=== PATIENT | female | born 1945 | race Caucasian/White ===

== ENCOUNTER 2017-10-17 10:15 | Emergency (ER) | payer MEDICARE, OTHER ==
[~2017-10-17] VITALS: Ht 154.9 cm; Wt 69.4 kg
[~2017-10-17 10:15] MED LIST: CIPROFLOXACIN500 MG PO; COQ-10100 MG PO; COZAAR25 MG PO; FISH OIL 1,2001 EAC1 PO; FLAGYL250 MG PO; IRBESARTAN300 MG PO; METOPROLOL SUCC25 MG PO; NIACIN500 M1 PO; PERCOCET 7.5-31 EACH PO; PRAVACHOL40 MG PO; ZINC50 M2 PO
--- NOTE | 2017-10-18 15:28 | EKG ---
[facility] [address] [facility] [place] [address] Signed Normal sinus rhythm Nonspecific ST abnormality Abnormal ECG No previous ECGs available Confirmed by ANDERS LUND MD ([id number]) on 10/18/2017 3:28:26 PM Electronically Signed By: ANDERS LUND MD 10/18/17 1528 PATIENT NAME: MELISSA ROWE Electrocardiogram DATE OF : 41 PHYSICIAN: ANDERS LUND MD REPORT #: [id number] REPORT IS CONFIDENTIAL AND NOT TO BE RELEASED WITHOUT AUTHORIZATION
== END 2017-10-17 12:25 | disposition home or self-care (01) ==
LOC: ED 10:15
DX: R68.84 Jaw pain (principal); R07.9 Chest pain, unspecified; I10 Essential (primary) hypertension; E78.5 Hyperlipidemia, unspecified; Z79.899 Other long term (current) drug therapy; Z79.2 Long term (current) use of antibiotics
CPT/HCPCS: 71045; 80053; 84484; 85025; 93005; 93010; 96374; 99284; J2060

== ENCOUNTER 2018-10-17 17:31 | Emergency (ER) | payer MEDICARE, OTHER ==
[~2018-10-17] VITALS: Ht 154.9 cm; Wt 73.5 kg
[2018-10-17] MEDS ORDERED: COZAAR50 MG PO (17:54)
[2018-10-17] MEDS ORDERED: CIPRO500 MG PO (19:40)
[2018-10-17] MEDS ORDERED: FLAGYL500 MG PO (19:40)
[2018-10-17] MEDS ORDERED: NORCO 5-325 TA1 EACH PO (19:40)
== END 2018-10-17 19:55 | disposition home or self-care (01) ==
LOC: ED 17:31
DX: R10.32 Left lower quadrant pain (principal); I10 Essential (primary) hypertension; E78.5 Hyperlipidemia, unspecified; Z88.8 Allergy status to other drugs, medicaments and biological substances; Z79.899 Other long term (current) drug therapy
CPT/HCPCS: 74176; 80053; 81001; 83690; 85025; 87088; 96365; 99284-25; J0696

== ENCOUNTER 2018-10-19 08:13 | Emergency (ER) | payer MEDICARE, OTHER ==
[~2018-10-19] VITALS: Ht 154.9 cm; Wt 73.5 kg
[~2018-10-19 08:13] MED LIST changes: +CIPRO500 MG PO; +COZAAR50 MG PO; +FLAGYL500 MG PO; +NORCO 5-325 TA1 EACH PO
--- OUTSIDE RECORDS SUMMARY | 2018-10-19 08:16 | XMS ---
PreManage Notification: MELISSA ROWE Security [employer] Hand Events No recent Security Events currently on file CRITERIA MET - [facility] - 2 Visits in 30 Days CARE PROVIDERS WATSON SANTA Primary Care 01/08/2015-Current PHONE: Unknown Other Current PHONE: Unknown Rosaura has no Care Guidelines for this patient. Vickie VISIT COUNT (12 MO.) [address] [place] [address] TOTAL 2 NOTE: Visits indicate total known visits. ED/UCC VISIT TRACKING (12 MO.) 10/19/2018 08:14 [facility] [place] TYPE: Emergency COMPLAINT: - WEAKNESS 10/17/2018 17:32 [facility] [place] TYPE: Emergency COMPLAINT: - ABD PAIN INPATIENT VISIT TRACKING (12 MO.) No inpatient visits to display in this time frame [email or web address]
--- NOTE | 2018-10-19 20:04 | EKG ---
[facility] [address] [facility] [place], [place] [address] Signed Sinus bradycardia Otherwise normal ECG When compared with ECG of 17-OCT-2017 10:37, Questionable change in QRS axis ST no longer depressed in Lateral leads Confirmed by ANDERS LUND MD ([id number]) on 10/19/2018 8:04:14 PM Electronically Signed By: ANDERS LUND MD 10/19/18 2004 PATIENT NAME: JAEMELISSAAyo CHOIE Electrocardiogram DATE OF : 41 PHYSICIAN: ANDERS LUND MD REPORT #: [id number] REPORT IS CONFIDENTIAL AND NOT TO BE RELEASED WITHOUT AUTHORIZATION
== END 2018-10-19 10:15 | disposition home or self-care (01) ==
LOC: ED 08:13
DX: R07.9 Chest pain, unspecified (principal); I10 Essential (primary) hypertension; E78.5 Hyperlipidemia, unspecified; Z90.49 Acquired absence of other specified parts of digestive tract; Z91.048 Other nonmedicinal substance allergy status; Z79.899 Other long term (current) drug therapy
CPT/HCPCS: 71045; 80053; 81001; 84484; 85025; 93005; 93010; 99285-25

== ENCOUNTER 2019-01-08 07:35 | Day surgery (SDC) | payer MEDICARE, OTHER ==
[~2019-01-08] VITALS: Ht 154.9 cm; Wt 72.6 kg
[2019-01-08] MEDS ORDERED: ADULT LOW DOSE81 MG PO (08:04)
--- NOTE | 2019-01-08 10:08 | NUR ---
01/08/19 Katelyn8 Shantel Reddy 0959 PT TO PACU SLEEPY BUT AROUSABLE DENIES PAIN OR NAUSEA O2 PLACED VIA NASAL CANNULA AT 2L.
--- NOTE | 2019-01-08 11:30 | NUR ---
PT COMES BACK TO FROM PACU. SHE HAS BEEN SLEEPY, C/O DIZZINESS AND LIGHTHEADEDNESS WHEN THEY TRIED TO DEPUTY INSURANCE COMMISSIONER PACU. SHE STATES THAT WHEN SHE MOVES HER HEAD IT MAKES HER DIZZY. SHE IS GIVEN WATER AND JELLO TO HELP. WILL CONTINUE TO MONITOR.
--- NOTE | 2019-01-08 12:26 | NUR ---
PT REPORTS THAT AFTER EATING SHE IS FEELING BETTER, LESS DIZZY. PT WOULD LIKE TO TRY GETTING UP.
--- NOTE | 2019-01-08 14:26 | NUR ---
ADA 1320: PT REQUESTS SOMETHING MORE SUBSTANIAL TO EAT. A GRILLED CHEESE SANDWICH AND TOMATO SOUP IS ORDERED. SHE REPORTS FEELING A LITTLE BETTER.
--- NOTE | 2019-01-08 14:27 | NUR ---
LE 1400: PT IS CHECKED ON AND SHE LOOKS MORE LIVELY THAN HER ARRIVAL FROM PACU. SHE HAS FINISHED HER SANDWICH AND SOUP AND REPORTS THAT SHE FEELS MUCH BETTER. SHE WOULD LIKE TO GO HOME AT THIS TIME. DC INSTRUCTIONS ARE REVIEWED WITH PT AND HER AGAIN VERBALLY, THEY BOTH VERBALIZE UNDERSTANDING. THIS RN HELPS THE PT GET DRESSED. SHE IS TAKEN TO VEHICLE VIA WC. SHE TRANSFERS HERSELF FROM WC TO VEHICLE.
--- NOTE | 2019-01-09 06:29 | OR ---
[facility] [address] [place], [place] [address] Signed DATE OF OPERATION: 01/08/2019 SURGEON: Radha Martinez MD PREOPERATIVE DIAGNOSES: 1. Gastroesophageal reflux disease. 2. Diverticulitis (September 2018). 3. Thickened proximal descending colon associated with diverticulitis. 4. A brother with colonic polyps in his late 50s. POSTOPERATIVE DIAGNOSES: 1. Wnwf-fm-qnykojzd gastritis. 2. Shallow linear antral gastric ulcer. 3. Small hiatal hernia. 4. Distal esophagitis. 5. Moderate pandiverticulosis with narrowing and angulation in the distal descending and proximal sigmoid colon. 6. Small internal and external hemorrhoids. 7. There is a 4 mm polyp in mid right colon. PROCEDURE: 1. EGD with CLOtest and biopsies of the duodenal, pyloric bulb, antrum and GE junction. 2. Colonoscopy with hot biopsy. ESTIMATED BLOOD LOSS: None. INDICATIONS: Melissa is a 73-year-old female, asked to see me for both upper and lower endoscopy. She has had longstanding acid reflux and finally took a medicine recently and she said overall she felt better, but then she stopped taking it. In addition, she went through an episode of diverticulitis in September of this year. CT scan, of course, showed some thickening in the distal descending colon and proximal sigmoid colon. As always, an actual neoplasm cannot be ruled out. In addition, Melissa's brother had colonic polyps in his late 50s. Unfortunately, Melissa has never had a colonoscopy. However, both her daughter and her have had colonoscopies. Melissa seemed to be a little anxious about the whole process. In the office, I gave her pamphlets on both upper and lower endoscopy. We looked at those in detail. She understands the nature of the 2 tests along with the risks including, but not limited to gas bloating, crampy abdominal pain, bleeding, perforation, requiring surgery, and missed diagnosis. She also understands Electronically Signed By: RADHA MARTINEZ MD 01/09/19 0629 PATIENT NAME: MELISSA ROWE OPERATIVE REPORT DATE OF : 41 REPORT #: [id number] PHYSICIAN: RADHA MARTINEZ MD PCP: CECE VILLEGAS MD REPORT IS CONFIDENTIAL AND NOT TO BE RELEASED WITHOUT AUTHORIZATION [facility] [address] [place] [address] Signed the need for IV conscious sedation. She had expressed understanding and wished to proceed. PROCEDURE NOTE: Melissa was taken into our endoscopy suite and placed in the supine semi-recumbent position. Posterior oropharynx was anesthetized with lidocaine spray. A bite block was utilized for the case. She was given a total of 8 mg of Versed and 175 mcg of fentanyl to cover both cases. The adult gastroscope was introduced and advanced all the way out into the third portion of the duodenum under direct visualization of camera without difficulty. The duodenum and pyloric channel were not overly concerning. We did take biopsies from the duodenal and pyloric bulb for pathologic review. Back in the antrum, she clearly had a shallow linear ulcer in the antrum. We went ahead and took a biopsy in this area along with the biopsy from the antrum for CLOtest. She had just a little bit of erythema in her stomach, but not particularly troublesome. The scope had been retroflexed and she clearly has a small hiatal hernia. There were no gastric or esophageal varices. The scope was withdrawn up through the area of the GE junction, which was compliant without stricture. She has mild disruption to the Z-line, but also has some patchy distal esophagitis. There was no Saeed's mucosa. We took biopsies at the GE junction for pathologic review. The middle and upper esophagus were unremarkable. After this, the gas was suctioned out and the gastroscope removed. Melissa tolerated her upper endoscopy quite well. Melissa was then rotated into the left lateral decubitus position. She was maintained on IV sedation with the Versed and fentanyl. A digital rectal exam was performed and she does have some small external hemorrhoids. Her sphincter tone was good. No masses. The adult colonoscope was then introduced and advanced all the way around into the cecum under direct visualization camera without difficulty. We could not quite get directly into the base of the cecum and there was some liquid bilious stool that we could not quite suction or irrigate out even with palpation on additional sedation. Otherwise, her prep was quite good. The scope was slowly withdrawn and she had just a small polyp in the mid right colon, which we easily removed with the help of hot biopsy forceps. She also has moderate pandiverticulosis. Again, it is somewhat narrow in the distal descending colon and proximal sigmoid colon. It is also angulated as she come to this area and down into the proximal to mid sigmoid colon. Her diverticula are somewhere moderate in size, moderate in moderate and scattered about. The rectum itself was unremarkable. Upon retroflexion of scope, she has some standard internal hemorrhoid tissue. One was a bit irritated, it might bleed from time to time. After this, the gas was suctioned out, colonoscope removed. Melissa tolerated the procedure quite well. RECOMMENDATIONS: I will see Melissa back in my office in 7 to 14 days to review her results. She probably needs to take an H2 brigid or proton pump inhibitor for stomach at least for 8-12 weeks Electronically Signed By: RADHA MARTINEZ MD 01/09/19 0629 PATIENT NAME: MELISSA ROWE OPERATIVE REPORT DATE OF : 41 REPORT #: [id number] PHYSICIAN: RADHA MARTINEZ MD PCP: CECE VILLEGAS MD REPORT IS CONFIDENTIAL AND NOT TO BE RELEASED WITHOUT AUTHORIZATION [facility] [address] [place], [place] [address], [place] [address] Signed to allow the shallow ulcer to heal. And given her brother's history, she probably should have a colonoscopy every 5 years. MD TALI White/GUERA /[id number] cc: MD Cece White MD Copies: RADHA MARTINEZ MD ~ Electronically Signed By: RADHA MARTINEZ MD 01/09/19 0629 PATIENT NAME: MELISSA ROWE OPERATIVE REPORT DATE OF : 41 REPORT #: [id number] PHYSICIAN: RADHA MARTINEZ MD PCP: CECE VILLEGAS MD REPORT IS CONFIDENTIAL AND NOT TO BE RELEASED WITHOUT AUTHORIZATION
== END 2019-01-08 14:15 | disposition home or self-care (01) ==
LOC: DS 07:35 → OPS 07:35
PROVIDERS: Colon & Rectal Surgery
PROC: 0DB78ZX Excision of Stomach, Pylorus, Via Natural or Artificial Opening Endoscopic, Diagnostic (ICD-10-PCS; 2019-01-08)
PROC: 0DB48ZX Excision of Esophagogastric Junction, Via Natural or Artificial Opening Endoscopic, Diagnostic (ICD-10-PCS; 2019-01-08)
PROC: 0DBF8ZX Excision of Right Large Intestine, Via Natural or Artificial Opening Endoscopic, Diagnostic (ICD-10-PCS; principal; 2019-01-08 09:00)
PROC: 0DB98ZX Excision of Duodenum, Via Natural or Artificial Opening Endoscopic, Diagnostic (ICD-10-PCS; 2019-01-08 09:00)
DX: Z12.11 Encounter for screening for malignant neoplasm of colon (principal); K63.5 Polyp of colon; K52.9 Noninfective gastroenteritis and colitis, unspecified; K64.8 Other hemorrhoids; K64.4 Residual hemorrhoidal skin tags; K57.30 Diverticulosis of large intestine without perforation or abscess without bleeding; K29.50 Unspecified chronic gastritis without bleeding; K25.9 Gastric ulcer, unspecified as acute or chronic, without hemorrhage or perforation; K29.80 Duodenitis without bleeding; K20.9 Esophagitis, unspecified; K44.9 Diaphragmatic hernia without obstruction or gangrene; I10 Essential (primary) hypertension; K21.9 Gastro-esophageal reflux disease without esophagitis; E78.00 Pure hypercholesterolemia, unspecified; Z83.71 Family history of colonic polyps; Z91.041 Radiographic dye allergy status; Z79.899 Other long term (current) drug therapy; Z79.82 Long term (current) use of aspirin
CPT/HCPCS: 86677; 99153; G0500; J2250; J3010; J7120

== ENCOUNTER 2019-01-31 17:54 | Observation (INO) | payer MEDICARE, OTHER ==
[~2019-01-31] VITALS: Ht 154.9 cm; Wt 75.8 kg
[~2019-01-31 17:54] MED LIST changes: +ADULT LOW DOSE81 MG PO; +COZAAR100 MG PO; -COZAAR50 MG PO
--- OUTSIDE RECORDS SUMMARY | 2019-01-31 17:56 | XMS ---
PreManage Notification: MELISSA ROWE Security Soybean Grower Events No recent Security Events currently on file CRITERIA MET - [facility] - Has Care Guidelines CARE PROVIDERS Maximilian Clement Internal [facility]: Pulmonary Disease 10/19/2018-Current PHONE: Unknown WATSON SANTA Primary Care 01/08/2015-Current PHONE: Unknown Other Current PHONE: Unknown Rosaura has no Care Guidelines for this patient. Care History Medical/Surgical 10/19/2018 [facility] - Patient is currently established with [facility]. If patient is seen in the ED during business hours. Please contact CHWs at [facility]. Care Recommendation: This patient has had 5 or more Emergency Department visits in the last 12 months.\T\nbsp; Patient requires education on the scope and purpose of the ED as an acute care provider not a Primary Care Provider and should not be utilized for chronic conditions.\T\nbsp; These are guidelines and the provider should exercise clinical judgment when providing care. E.D. VISIT COUNT (12 MO.) 3 SIMA [facility]oe TOTAL 3 NOTE: Visits indicate total known visits. ED/UCC VISIT TRACKING (12 MO.) 01/31/2019 17:54 [facility] [place] TYPE: Emergency COMPLAINT: - DIZZINESS 10/19/2018 08:14 [facility] [place] TYPE: Emergency COMPLAINT: - WEAKNESS DIAGNOSES: - Acquired absence of other specified parts of digestive tract - Other prison (current) drug therapy - Other nonmedicinal substance allergy status - Essential (primary) hypertension - Hyperlipidemia, unspecified - Weakness - Chest pain, unspecified 10/17/2018 17:32 [facility] [place] TYPE: Emergency COMPLAINT: - ABD PAIN DIAGNOSES: - Hyperlipidemia, unspecified - Essential (primary) hypertension - Other prison (current) drug therapy - Left lower quadrant pain - Allergy status to other drugs, medicaments and biological substances status INPATIENT VISIT TRACKING (12 MO.) No inpatient visits to display in this time frame [email or web address]
--- NOTE | 2019-01-31 23:24 | NUR ---
VITALS DONE AND CHARTED. HELPED PT FROM THE BATHROOM TO HER BED. SCD'S PUT ON. CALL LIGHT IN REACH. FRESH ICE WATER GIVEN. BEDSIDE TABLE BY HER BED. PT NEEDS NOTHING MORE AT THIS TIME.
--- NOTE | 2019-01-31 23:29 | NUR ---
2257 - ADMITTED TO ROOM 119 VIA STRETCHER FROM ED, DX OF HYPONATRE,IA AND VERTIGO. COOPERATIVE WTIH ADMIT QUESTIONS ANSD ASSESSMENT. UP TO BR, WEAK, UNSTEADY, TOLERATED WELL, BACKA TO BED. TELE#[address] BED ALARM ON. PT AWARE OF FLUID RESTRICTION, DENIES H/A N/V OR CHEST PAIN, NO SOB. ORIENTED TO HOSP AND ROUSTINES, COOPERATIVE.
--- NOTE | 2019-02-01 00:12 | NUR ---
Patient headed into the rest room with TAMMY DECEMBER. PATIENT ADMITED. BM YESTERDAY. LUNGS CLEAR. BOWEL TONES ACTIVE. IV FLUSHED AND WNL. D5 RUNNING AT 150MLS/HR. PRAYED WITH PATIENT REQUESTED A VISIT FROM [facility]. SCD'S ARE IN PLACE WATER AT BEDSIDE. PATIENT DENIES NAUSEA AND PAIN AT THIS TIME.
--- NOTE | 2019-02-01 00:17 | NUR ---
HELPED PT TO THE BATHROOM AND BACK TO BED. BED ALARM SET. BEDSIDE TABLE AND CALL LIGHT IN REACH. SCD'S TURNED BACK ON.
--- NOTE | 2019-02-01 00:53 | EKG ---
[facility] [address] [facility] [place] [facility] [place] [address] Signed Sinus bradycardia Nonspecific ST abnormality Abnormal ECG When compared with ECG of 19-OCT-2018 08:37, T wave inversion no longer evident in Lateral leads Confirmed by ANDERS LUND MD ([id number]) on 02/01/2019 12:53:39 AM Electronically Signed By: ANDERS LUND MD 02/01/19 0053 PATIENT NAME: JAEMELISSAAyo CHOIE Electrocardiogram DATE OF : 41 PHYSICIAN: ANDERS LUND MD REPORT #: [id number] REPORT IS CONFIDENTIAL AND NOT TO BE RELEASED WITHOUT AUTHORIZATION
--- NOTE | 2019-02-01 02:25 | NUR ---
PATIENT WAS SLEEPING UNTIL I WOKE HER UP FOR HER VS WHICH ARE STABLE, AND HER ASSESSMENT. PATIENT SAID SHE IS DOING OK.
--- NOTE | 2019-02-01 03:04 | NUR ---
CALLED DR. LUND TO LET HIM KNOW PATIENT'S TELE HR HAS DROPPED DOWN TO LOW 45, BUT OTHER VITALS ARE STABLE AND PATIENT IS NOT SYMPTOMATIC, NO CHESY PAIN OR SHORTNESS OF BREATH. DR. LUND SAID JUST TO WATCH AND MONITOR THE PATIENT FOR NOW CCU IS AWARE.
--- NOTE | 2019-02-01 05:15 | NUR ---
PATIENT HAS STILL HAD SOME DIZZINESS AT TIMES WHEN UP AND WALKING, BUT AMBULATES TO THE BATHROOM WITH 1PA AND FWW. 600ML D5 BOLUS WAS GIVEN IV AT 150MLS/HR. PATIENT ON TELE #1, PATIENT HAS BBEEEN BRADICARDIC SINCE ARRIVAL. HEART RATE HAS DROPPED TO LOW 43BPM, OTHER VS STABLE. PATIENT IS HAVING NO PAIN OR ANY OTHER SYMPTOMS. PATIENT UP TO THE REST ROOM A SHORT TIME AGO AND REMAINS AWAKE. PATIENT SAID SHE DID HOWEVER SLEEP VERY WELL FOR 3-4 HOURS, WHICH IS BETTER THAN SHE HAS SLEPT IN AWHILE. WAS INFORMED OF THE BRADYCARDIA AND ADVISED NURSING TO MONITOR FOR THE TIME BEING.
--- NOTE | 2019-02-01 06:31 | NUR ---
VITALS AND I&OS DONE AND CHARTED. HELPED PT TO THE BATHROOM AND BACK TO BED. SCD'S PLUGGED BACK IN. BEDSIDE TABLE AND CALL LIGHT IN REACH. PT NEEDS NOTHING MORE AT THIS TIME.
--- NOTE | 2019-02-01 07:30 | NUR ---
PATIENT RESTING IN BED. PATIENT GOES TO USE BATHROOM. PATIENT USING A WALKER AND GATE BELT. ONE PERSON ASSISTING. PATIENT BACKS TO CHAIR. CHAIR ALARM ON. LINENS CHANGED. ICE WATER GIVEN. PATIENT'S BREAKFAST ORDERED. WARM BLANKET PROVIDED. CALL LIGHT WITHIN REACH. NO OTHER NEEDS AT THIS TIME
--- NOTE | 2019-02-01 07:35 | NUR ---
PATIENT SITTING UP IN CHAIR. FACE AND HANDS CLEANED. CHAIR ALARM MFG ASS[employer] LIGHT WITHIN REACH. NO OTHER NEEDS AT THIS TIME
--- NOTE | 2019-02-01 07:38 | NUR ---
RECIEVED BEDSIDE REPORT FROM YOGI MCGRATH. PT AWAKE AND ALERT, IN BED. BED ALARM ON. PT VOIDING VERY WELL. MRI WILL BE UP TO TAKE PT AT 1300.
--- NOTE | 2019-02-01 08:52 | NUR ---
CALL LIGHT ANSWERED. PATIENT SITTING UP IN CHAIR. PATIENT GOES TO USE BATHROOM. PATIENT USES A WALKER. ONE PERSON ASSISTING. PATIENT BACKS TO CHAIR. CHAIR ALARM ON. CALL LIGHT WITHIN REACH. NO OTHER NEEDS AT THIS TIME
--- NOTE | 2019-02-01 10:30 | NUR ---
PATIENT SITTING UP IN CHAIR. VITAL SIGNS AND I&O DONE. CALL LIGHT WITHIN REACH. NO OTHER NEEDS AT THIS TIME
[2019-02-01] MEDS ORDERED: HYDROCHLOROTH12.5 MG PO (13:10)
--- NOTE | 2019-02-01 13:51 | NUR ---
PATIENT SITTING UP IN CHAIR. AND DAUGHTER IN ROOM, VITAL SIGNS AND I&O DONE. CALL LIGHT WITHIN REACH. NO OTHER NEEDS AT THIS TIME
== END 2019-02-01 14:40 | disposition home or self-care (01) ==
LOC: ED 17:54 → MS 17:55
PROVIDERS: ADMIT Internal Medicine
DX: R26.81 Unsteadiness on feet (principal); I10 Essential (primary) hypertension; E78.5 Hyperlipidemia, unspecified; E87.6 Hypokalemia; E87.1 Hypo-osmolality and hyponatremia; T50.2X5A Adverse effect of carbonic-anhydrase inhibitors, benzothiadiazides and other diuretics, initial encounter; Z88.8 Allergy status to other drugs, medicaments and biological substances; Z79.82 Long term (current) use of aspirin; Z79.899 Other long term (current) drug therapy
CPT/HCPCS: 36415; 70450; 70551; 80048; 80053; 83930; 84443; 84484; 84550; 85025; 93005; 93010; 96361; 96374; 99285-25; G0378; J2550; J7030; J7070

== ENCOUNTER 2020-07-11 20:38 | Emergency (ER) | payer MEDICARE, OTHER ==
[~2020-07-11] VITALS: Ht 154.9 cm; Wt 75.3 kg
[~2020-07-11 20:38] MED LIST changes: +HYDROCHLOROTH12.5 MG PO
[2020-07-11] MEDS ORDERED: BLACK ELDERBER1 EACH PO (20:53)
[2020-07-11] MEDS ORDERED: MOVE FREE ULTR1 EAC2 PO (20:53)
--- NOTE | 2020-07-12 17:33 | EKG ---
[facility] [address] [facility] [place] [address] Signed Normal sinus rhythm Normal ECG When compared with ECG of 31-JAN-2019 18:12, No significant change was found Confirmed by ANDERS LUND MD ([id number]) on 07/12/2020 5:33:35 PM Electronically Signed By: ANDERS LUND MD 07/12/20 1733 PATIENT NAME: MELISSA ROWE Electrocardiogram DATE OF : 41 PHYSICIAN: ANDERS LUND MD REPORT #: [id number] REPORT IS CONFIDENTIAL AND NOT TO BE RELEASED WITHOUT AUTHORIZATION
== END 2020-07-11 22:28 | disposition home or self-care (01) ==
LOC: ED 20:38
DX: I10 Essential (primary) hypertension (principal); E78.5 Hyperlipidemia, unspecified; Z88.8 Allergy status to other drugs, medicaments and biological substances; Z79.899 Other long term (current) drug therapy
CPT/HCPCS: 71045; 80053; 83735; 84484; 85025; 93005; 93010; 99285-25

== ENCOUNTER 2021-02-07 00:30 | Emergency (ER) | payer MEDICARE, OTHER ==
[~2021-02-07] VITALS: Ht 154.9 cm; Wt 75.3 kg
[~2021-02-07 00:30] MED LIST changes: +BLACK ELDERBER1 EACH PO; +MOVE FREE ULTR1 EAC2 PO
--- NOTE | 2021-02-07 11:53 | EKG ---
[facility] [address] [facility] [place] [address] Signed Sinus rhythm with occasional premature ventricular complexes Otherwise normal ECG When compared with ECG of 11-JUL-2020 20:45, premature ventricular complexes are now present Confirmed by ALOK MONTAÑO DO ([id number]) on 02/07/2021 11:53:26 AM Electronically Signed By: ALOK MONTAÑO DO 02/07/21 1153 PATIENT NAME: JAEMELISSAAyo HAHNROMEL Electrocardiogram DATE OF : 41 PHYSICIAN: ALOK MONTAÑO DO REPORT #: [id number] REPORT IS CONFIDENTIAL AND NOT TO BE RELEASED WITHOUT AUTHORIZATION
== END 2021-02-07 01:43 | disposition home or self-care (01) ==
LOC: ED 00:30
DX: R00.2 Palpitations (principal); I10 Essential (primary) hypertension; E78.5 Hyperlipidemia, unspecified; Z88.8 Allergy status to other drugs, medicaments and biological substances; Z79.899 Other long term (current) drug therapy
CPT/HCPCS: 80053; 83735; 84484; 85025; 93005; 93010; 99284-25

== ENCOUNTER 2021-05-11 20:13 | Emergency (ER) | payer MEDICARE, OTHER ==
[~2021-05-11] VITALS: Ht 154.9 cm; Wt 76.2 kg
[2021-05-11] MEDS ORDERED: HYDROCHLOROTH12.5 MG PO (21:37)
[2021-05-11] MEDS ORDERED: CALCIUM 600 +1 EA12 PO (21:38)
[2021-05-12] MEDS ORDERED: CIPRO500 MG PO (00:29)
[2021-05-12] MEDS ORDERED: FLAGYL500 MG PO (00:29)
== END 2021-05-12 01:45 | disposition home or self-care (01) ==
LOC: ED 20:13
DX: K57.32 Diverticulitis of large intestine without perforation or abscess without bleeding (principal); N39.0 Urinary tract infection, site not specified; I10 Essential (primary) hypertension; E78.5 Hyperlipidemia, unspecified; Z79.899 Other long term (current) drug therapy
CPT/HCPCS: 74177; 80053; 81001; 83690; 85025; 96368; 99284-25; J0696; Q9967

== ENCOUNTER 2022-01-19 08:26 | Emergency (ER) | payer MEDICARE, OTHER ==
[~2022-01-19] VITALS: Ht 154.9 cm; Wt 70.8 kg
[~2022-01-19 08:26] MED LIST changes: +CALCIUM 600 +1 EA12 PO
[2022-01-19] MEDS ORDERED: NITROGLYCERIN0.4 MG SL (12:51)
--- NOTE | 2022-01-19 19:10 | EKG ---
[facility] [address] [facility] [place] [address] Signed Normal sinus rhythm Normal ECG When compared with ECG of 07-FEB-2021 00:39, premature ventricular complexes are no longer present Confirmed by ANDERS LUND MD ([id number]) on 01/19/2022 7:10:30 PM Electronically Signed By: ANDERS LUND MD 01/19/221909 PATIENT NAME: MELISSA ROWE Electrocardiogram DATE OF : 41 PHYSICIAN: ANDERS LUND MD REPORT #: [id number] REPORT IS CONFIDENTIAL AND NOT TO BE RELEASED WITHOUT AUTHORIZATION
== END 2022-01-19 13:04 | disposition home or self-care (01) ==
LOC: ED 08:26
DX: R07.2 Precordial pain (principal); I10 Essential (primary) hypertension; E78.5 Hyperlipidemia, unspecified; Z79.899 Other long term (current) drug therapy; Z88.8 Allergy status to other drugs, medicaments and biological substances
CPT/HCPCS: 36415; 71045; 71260; 80053; 83690; 84443; 84484; 85025; 85379; 93005; 93010; 99285-25; Q9967

== ENCOUNTER 2023-04-03 08:15 | Emergency (ER) | payer MEDICARE, OTHER ==
[~2023-04-03] VITALS: Ht 157.5 cm; Wt 76.2 kg
--- OUTSIDE RECORDS SUMMARY | ~2023-04-03 | XMS | Continuity of Care Document ---
Demographics + + + | Address | [address] | | | [place] [address] | + + + | Preferred Language | Unknown | + + + | Marital Status | | + + + | Voodoo Affiliation | Unknown | + + + | Race | White | + + + | Ethnic Group | Unknown | + + + Author + + + | Author | [facility] | + + + | Organization | [facility] | + + + | Address | [address] | | | [place] [address] | + + + | Phone | | + + + Care Team Providers + + + + | Care Rehabilitation Team Lead Name | Role | Phone | + + + + Unavailable | Unavailable | + + + + Allergies No information. Encounters No information. Functional Status No information. Immunizations No information. Medications No information. Problems + + + + | date | description | facility | + + + + | 2022-01-19 08:27 | Hyperlipidemia, | [facility] | | | unspecified | [facility] | + + + + | 2022-01-19 08:27 | Essential (primary) | [facility] | | | hypertension | [facility] | + + + + | 2022-01-19 08:27 | Precordial pain | [facility] | | | | [facility] | + + + + | 2022-01-19 08:27 | Other halfway (current) | [facility] | | | drug therapy | [facility] | + + + + | 2022-01-19 08:27 | Allergy status to other | [facility] | | | drugs, medicaments and | [facility] | | | biological substances | | + + + + Procedures No information. Results/Labs No information. Social History No information. Vital Signs No information."
--- OUTSIDE RECORDS SUMMARY | ~2023-04-03 | XMS | Continuity of Care Document ---
Demographics + + + | Address | [address] | | | [place] [address] | + + + | Preferred Language | Unknown | + + + | Marital Status | | + + + | Rastafarian Affiliation | Unknown | + + + | Race | White | + + + | Ethnic Group | Unknown | + + + Author + + + | Author | [facility] | + + + | Organization | [facility] | + + + | Address | [address] | | | [place] [address] | + + + | Phone | | + + + Care Team Providers + + + + | Care Financial Wellness Coach Name | Role | Phone | + [...] + + | 2022-01-19 08:27 | Other usp (current) | [facility] | | | [...]
[~2023-04-03 08:15] MED LIST changes: +NITROGLYCERIN0.4 MG SL
[2023-04-03 12:51] VITALS: BP 166/79
--- NOTE | 2023-04-06 06:41 | EKG ---
[facility] [address] [facility] [place], [place] [address] Signed Normal sinus rhythm Normal ECG When compared with ECG of 19-JAN-2022 08:33, No significant change was found Confirmed by AURORA HERNANDEZ MD ([id number]) on 04/06/2023 6:41:31 AM Electronically Signed By: AURORA HERNANDEZ 04/06/23 0641 PATIENT NAME: MELISSA ROWE Electrocardiogram DATE OF : 41 PHYSICIAN: AURORA HERNANDEZ REPORT #: [id number] REPORT IS CONFIDENTIAL AND NOT TO BE RELEASED WITHOUT AUTHORIZATION
== END 2023-04-03 12:51 | disposition home or self-care (01) ==
LOC: ED 08:15
DX: R07.89 Other chest pain (principal); I10 Essential (primary) hypertension; E78.5 Hyperlipidemia, unspecified; Z91.048 Other nonmedicinal substance allergy status; Z79.899 Other long term (current) drug therapy
CPT/HCPCS: 36415; 71045; 76705; 80053; 83690; 83735; 84484; 85025; 93005; 93010; 99285 25

== ENCOUNTER 2024-10-16 07:32 | Emergency (ER) | payer MEDICARE, OTHER ==
[~2024-10-16] VITALS: Ht 157.5 cm; Wt 78.5 kg
[2024-10-16] MEDS ORDERED: NITROGLYCERIN 0.4 MG SUBL SL PRN (07:45)
[2024-10-16] MEDS ORDERED: ASPIRIN 81 MG CHEW PO ONE (07:45)
[2024-10-16 07:49] LABS: BASOPHILS 0.7 % (0-2); EOSINOPHILS 0.9 % (0-6); HEMATOCRIT 43.5 % (35.0-50.0); HEMOGLOBIN 15.1 g/dL (12.0-18.0); LYMPHOCYTES 37.2 % (24-44); MCH 31.6 (27-36); MCHC 34.7 g/dl (30-36); MCV 91.2 fl (81-99); MONOCYTES 6.6 % (0-12); NEUTROPHILS 54.6 % (39-80); PLATELET COUNT 228 K/uL (140-440); RBC 4.77 M/ul (4.3-5.7); RDW 13.6 (10.5-15.0)
[2024-10-16] MEDS ORDERED: LORazepam 2 MG/ML VIAL IV ONE (08:00)
[2024-10-16 08:05] LABS: ALBUMIN 3.8 g/dL (3.4-5.0); ALBUMIN/GLOBULIN RATIO 1.06 (1.1-2.4); ANION GAP 9.5 (7-21); BILIRUBIN, TOTAL 0.5 ng/dL (0.2-1.0); BUN/CREATININE RATIO 17.64 (6.0-28.6); CALCIUM 10.6 mg/dL (8.5-10.1); CREATININE, SERUM 0.85 mg/dL (0.55-1.02); MAGNESIUM 1.7 mg/dL (1.8-2.4); POTASSIUM 3.5 mmol/L (3.5-5.1); PROTEIN, TOTAL 7.4 g/dL (6.4-8.2)
[2024-10-16] MEDS ORDERED: MAGNESIUM SULFATE 2 GM/50 ML BAG IV ONE (09:00)
--- NOTE | 2024-10-16 10:52 | EKG ---
[facility] [address] [facility] [place] [address] Signed Normal sinus rhythm Cannot rule out Inferior infarct , age undetermined Abnormal ECG When compared with ECG of 27-DEC-2023 04:49, Minimal criteria for Inferior infarct are now present Confirmed by Maria Del Carmen Wei MD ([id number]) on 10/16/2024 10:52:32 AM Electronically Signed By: MARIA DEL CARMEN WEI MD 10/16/24 1052 PATIENT NAME: MELISSA ROWE Electrocardiogram DATE OF : 41 PHYSICIAN: MARIA DEL CARMEN WEI MD REPORT #: [id number] REPORT IS CONFIDENTIAL AND NOT TO BE RELEASED WITHOUT AUTHORIZATION
[2024-10-16] MEDS ORDERED: MAGNESIUM400 M1 PO (11:01)
[2024-10-16 11:41] VITALS: BP 124/95
== END 2024-10-16 11:43 | disposition home or self-care (01) ==
LOC: ED 07:32
PROVIDERS: Emergency Medicine
DX: R42 Dizziness and giddiness (principal); E83.42 Hypomagnesemia; I10 Essential (primary) hypertension; E78.5 Hyperlipidemia, unspecified; Z91.041 Radiographic dye allergy status; Z79.899 Other long term (current) drug therapy
CPT/HCPCS: 36415; 71045; 71260; 80053; 83735; 84484; 85025; 85379; 93005; 93010; 99284-25; A9270; J2060; J3475; Q9967

== ENCOUNTER 2024-11-17 01:43 | Emergency (ER) | payer MEDICARE, OTHER ==
[~2024-11-17] VITALS: Ht 157.5 cm; Wt 80.3 kg
[~2024-11-17 01:43] MED LIST changes: +MAGNESIUM400 M1 PO
[2024-11-17] MEDS ORDERED: CHLORTHALIDONE25 MG PO (01:55)
[2024-11-17] MEDS ORDERED: ASPIRIN 81 MG CHEW PO ONE (02:00)
[2024-11-17] MEDS ORDERED: NITROGLYCERIN 0.4 MG SUBL SL PRN (02:00)
[2024-11-17 02:05] LABS: BASOPHILS 0.4 % (0-2); EOSINOPHILS 2.2 % (0-6); HEMATOCRIT 41.1 % (35.0-50.0); HEMOGLOBIN 14.4 g/dL (12.0-18.0); LYMPHOCYTES 43.7 % (24-44); MCV 91.5 fl (81-99); MONOCYTES 9.4 % (0-12); NEUTROPHILS 44.3 % (39-80); PLATELET COUNT 219 K/uL (140-440); RBC 4.49 M/ul (4.3-5.7); RDW 13.7 (10.5-15.0)
[2024-11-17 02:23] LABS: ALBUMIN 3.8 g/dL (3.4-5.0); ALBUMIN/GLOBULIN RATIO 1.06 (1.1-2.4); ANION GAP 15.3 (7-21); BILIRUBIN, TOTAL 0.4 mg/dL (0.2-1.0); BUN/CREATININE RATIO 22.36 (6.0-28.6); CALCIUM 10.2 mg/dL (8.5-10.1); CREATININE, SERUM 0.76 mg/dL (0.55-1.02); MAGNESIUM 1.8 mg/dL (1.8-2.4); POTASSIUM 3.3 mmol/L (3.5-5.1); PROTEIN, TOTAL 7.4 g/dL (6.4-8.2)
[2024-11-17 03:50] VITALS: BP 133/73
--- NOTE | 2024-11-17 19:45 | EKG ---
[facility] [address] [facility] [place] [address] Signed Normal sinus rhythm Nonspecific ST abnormality Abnormal ECG When compared with ECG of 16-OCT-2024 07:37, Minimal criteria for Inferior infarct are no longer present Confirmed by Teresa Allen MD () on 11/17/2024 7:44:58 PM Electronically Signed By: TERESA ALLEN MD 11/17/241944 PATIENT NAME: MELISSA ROWE Electrocardiogram DATE OF : 41 PHYSICIAN: TERESA ALLEN MD REPORT #: [id number] REPORT IS CONFIDENTIAL AND NOT TO BE RELEASED WITHOUT AUTHORIZATION
== END 2024-11-17 03:50 | disposition home or self-care (01) ==
LOC: ED 01:43
PROVIDERS: Emergency Medicine
DX: R07.89 Other chest pain (principal); I10 Essential (primary) hypertension; E78.5 Hyperlipidemia, unspecified; Z91.041 Radiographic dye allergy status; Z79.899 Other long term (current) drug therapy
CPT/HCPCS: 36415; 71045; 80053; 83735; 84484; 85025; 93005; 93010; 99285-25; A9270

== ENCOUNTER 2025-02-16 09:22 | Emergency (ER) | payer MEDICARE, OTHER ==
[~2025-02-16] VITALS: Ht 157.5 cm; Wt 81.1 kg
[~2025-02-16 09:22] MED LIST changes: +CHLORTHALIDONE25 MG PO
[2025-02-16 09:51] LABS: BASOPHILS 0.4 % (0.1-1.2); HEMATOCRIT 41.2 % (34.1-44.9); HEMOGLOBIN 13.9 g/dL (11.2-15.7); LYMPHOCYTES 24.9 % (19.3-51.7); MCH 30.9 PG (25.6-32.2); MCHC 33.7 g/dL (32.2-35.5); MCV 91.6 fL (79.4-94.8); MONOCYTES 7.4 % (4.7-12.5); NEUTROPHILS 65.7 % (34.0-71.1); PLATELET COUNT 211 K/uL (182-369)
[2025-02-16 10:07] LABS: ALBUMIN 3.7 g/dL (3.4-5.0); ALBUMIN/GLOBULIN RATIO 1.09 (1.1-2.4); ANION GAP 13.6 (7-21); BILIRUBIN, TOTAL 0.5 mg/dL (0.2-1.0); BUN/CREATININE RATIO 12.19 (6.0-28.6); CALCIUM 9.4 mg/dL (8.5-10.1); CREATININE, SERUM 0.82 mg/dL (0.55-1.02); POTASSIUM 3.6 mmol/L (3.5-5.1); PROTEIN, TOTAL 7.1 g/dL (6.4-8.2)
[2025-02-16 10:30] LABS: BILIRUBIN, URINE NEGATIVE (negative); BLOOD/HGB, URINE MODERATE (Negative); KETONE, URINE NEGATIVE (Negative); LEUK ESTERASE, URINE NEGATIVE (negative); NITRITE, URINE NEGATIVE (negative)
[2025-02-16 10:36] LABS: BACTERIA, URINE 1+ /hpf (negative); CASTS, URINE NONE SEEN \\lpf; COLLECTION TYPE, URINE CLEAN CATCH; CRYSTALS, URINE NONE SEEN (0-1+); EPITHELIAL CELLS, URINE SQUAMOUS 3+ /lpf (0-1+); REFLEX CULTURE, URINE No (No); WHITE BLOOD CELLS, URINE 0-1 /HPF (0-5)
[2025-02-16 11:35] VITALS: BP 168/81
== END 2025-02-16 11:35 | disposition home or self-care (01) ==
LOC: ED 09:22
PROVIDERS: Emergency Medicine
DX: R10.32 Left lower quadrant pain (principal); I10 Essential (primary) hypertension; E78.5 Hyperlipidemia, unspecified; Z91.041 Radiographic dye allergy status
CPT/HCPCS: 36415; 74177; 80053; 81001; 83690; 85025; 99284-25; Q9967

== ENCOUNTER 2025-06-11 04:15 | Emergency (ER) | payer MEDICARE ==
[~2025-06-11] VITALS: Ht 157.5 cm; Wt 82.1 kg
[2025-06-11] MEDS ORDERED: PANTOPRAZOLE SODIUM 40 MG/10 ML VIAL IV ONE (04:45)
[2025-06-11] MEDS ORDERED: SODIUM CHLORIDE 0.9% 1,000 ML IV ONE (04:45)
[2025-06-11 04:50] LABS: BASOPHILS 0.7 % (0.1-1.2); EOSINOPHILS 2.1 % (0.7-5.8); LYMPHOCYTES 36.7 % (19.3-51.7); MCH 31.2 PG (25.6-32.2); MCHC 34.4 g/dL (32.2-35.5); MCV 90.5 fL (79.4-94.8); MONOCYTES 9.4 % (4.7-12.5); NEUTROPHILS 50.6 % (34.0-71.1); RBC 4.62 M/uL (3.93-5.22)
[2025-06-11 05:06] LABS: ALT (SGPT) 35.0 U/L (14-59); AST (SGOT) 25.0 U/L (15-37); GLOMERULAR FILTRATION RATE,EST 68.0 mL/min (>60); PROTEIN, TOTAL 7.1 g/dL (6.4-8.2); UREA NITROGEN 15.0 mg/dL (7-18)
[2025-06-11 05:27] LABS: BLOOD/HGB, URINE MODERATE (Negative); KETONE, URINE NEGATIVE (Negative); LEUK ESTERASE, URINE NEGATIVE (negative); NITRITE, URINE NEGATIVE (negative)
[2025-06-11 05:34] LABS: CRYSTALS, URINE NONE SEEN (0-1+); EPITHELIAL CELLS, URINE SQUAMOUS 4+ /lpf (0-1+)
[2025-06-11 05:35] LABS: BACTERIA, URINE 1+ /hpf (negative); CASTS, URINE NONE SEEN \\lpf; REFLEX CULTURE, URINE No (No)
[2025-06-11] MEDS ORDERED: MACROBID 100 M100 MG PO (06:35)
[2025-06-11] MEDS ORDERED: NITROFURANTOIN MONOHYD MACROCR 100 MG HOME.PACK PO ONE (06:45)
[2025-06-11 06:56] VITALS: BP 167/85
== END 2025-06-11 06:58 | disposition home or self-care (01) ==
LOC: ED 04:15
PROVIDERS: Family Medicine
DX: N39.0 Urinary tract infection, site not specified (principal); I10 Essential (primary) hypertension; E78.5 Hyperlipidemia, unspecified; Z88.8 Allergy status to other drugs, medicaments and biological substances; Z79.899 Other long term (current) drug therapy
CPT/HCPCS: 36415; 74177; 80053; 81001; 83690; 85025; 96374; 99284-25; J2405; J2470; J7030; Q9967

== ENCOUNTER 2025-07-16 08:52 | Emergency (ER) | payer MEDICARE ==
[~2025-07-16] VITALS: Ht 157.5 cm; Wt 82.1 kg
[~2025-07-16 08:52] MED LIST changes: +MACROBID 100 M100 MG PO
[2025-07-16 09:58] VITALS: BP 157/79
== END 2025-07-16 09:58 | disposition home or self-care (01) ==
LOC: ED 08:52
DX: S83.92XA Sprain of unspecified site of left knee, initial encounter (principal); W19.XXXA Unspecified fall, initial encounter; I10 Essential (primary) hypertension; Z91.041 Radiographic dye allergy status; Z79.899 Other long term (current) drug therapy
CPT/HCPCS: 73560; 85610; 99283

== ENCOUNTER 2025-07-28 22:32 | Emergency (ER) | payer MEDICARE ==
[~2025-07-28] VITALS: Ht 157.5 cm; Wt 82.1 kg
[2025-07-28] MEDS ORDERED: ASPIRIN 81 MG CHEW PO ONE (22:45)
[2025-07-28 22:47] LABS: BASOPHILS 0.5 % (0.1-1.2); EOSINOPHILS 2.0 % (0.7-5.8); LYMPHOCYTES 39.2 % (19.3-51.7); MCH 31.5 PG (25.6-32.2); MCHC 33.6 g/dL (32.2-35.5); MCV 93.5 fL (79.4-94.8); MONOCYTES 8.9 % (4.7-12.5); NEUTROPHILS 49.0 % (34.0-71.1); RBC 4.64 M/uL (3.93-5.22)
[2025-07-28 22:59] LABS: INR 0.91 (0.80-1.30); PROTIME 11.9 Sec (11.2-14.2)
[2025-07-28 23:15] LABS: ALT (SGPT) 33.0 U/L (14-59); AST (SGOT) 19.0 U/L (15-37); GLOMERULAR FILTRATION RATE,EST 79.0 mL/min (>60); PROTEIN, TOTAL 7.3 g/dL (6.4-8.2); UREA NITROGEN 20.0 mg/dL (7-18)
[2025-07-29] MEDS ORDERED: CYCLOBENZAPRINE10 MG PO (00:23)
[2025-07-29] MEDS ORDERED: KETOROLAC TROMETHAMINE 30 MG/ML VIAL IV ONE (00:30)
[2025-07-29] MEDS ORDERED: CYCLOBENZAPRINE HCL 10 MG HOME.PACK PO ONE (00:30)
[2025-07-29 00:58] VITALS: BP 153/77
--- NOTE | 2025-07-29 22:31 | EKG ---
[facility] [address] [facility] [place] [address] Signed Normal sinus rhythm Nonspecific ST and T wave abnormality Abnormal ECG When compared with ECG of 17-NOV-2024 01:48, No significant change was found Confirmed by Teresa Allen MD () on 07/29/2025 10:31:26 PM Electronically Signed By: TERESA ALLEN MD 07/29/252230 PATIENT NAME: MELISSA ROWE Electrocardiogram DATE OF : 41 PHYSICIAN: TERESA ALLEN MD REPORT #: [id number] REPORT IS CONFIDENTIAL AND NOT TO BE RELEASED WITHOUT AUTHORIZATION
== END 2025-07-29 00:58 | disposition home or self-care (01) ==
LOC: ED 22:32
PROVIDERS: Family Medicine
DX: R07.89 Other chest pain (principal); I10 Essential (primary) hypertension; E78.5 Hyperlipidemia, unspecified; Z79.899 Other long term (current) drug therapy; Z91.041 Radiographic dye allergy status
CPT/HCPCS: 36415; 71045; 80053; 83690; 83735; 83880; 84484; 85025; 85379; 85610; 93005; 93010; 99285-25; A9270

== ENCOUNTER 2025-08-14 08:02 | Emergency (ER) | payer MEDICARE, OTHER ==
[~2025-08-14] VITALS: Ht 157.5 cm; Wt 80.6 kg
[~2025-08-14 08:02] MED LIST changes: +CYCLOBENZAPRINE10 MG PO
[2025-08-14 08:42] LABS: BASOPHILS 0.5 % (0.1-1.2); EOSINOPHILS 2.0 % (0.7-5.8); LYMPHOCYTES 28.8 % (19.3-51.7); MCH 31.4 PG (25.6-32.2); MCHC 34.0 g/dL (32.2-35.5); MCV 92.3 fL (79.4-94.8); MONOCYTES 9.0 % (4.7-12.5); NEUTROPHILS 59.3 % (34.0-71.1); RBC 4.56 M/uL (3.93-5.22)
[2025-08-14 09:11] LABS: ALT (SGPT) 31.0 U/L (14-59); AST (SGOT) 21.0 U/L (15-37); GLOMERULAR FILTRATION RATE,EST 74.0 mL/min (>60); PROTEIN, TOTAL 6.8 g/dL (6.4-8.2); UREA NITROGEN 17.0 mg/dL (7-18)
[2025-08-14 09:35] VITALS: BP 179/98
--- NOTE | 2025-08-14 17:33 | EKG ---
[facility] [address] [facility] [place] [address] Signed Normal sinus rhythm Normal ECG When compared with ECG of 28-JUL-2025 22:36, No significant change was found Confirmed by Teresa Allen MD () on 08/14/2025 5:33:39 PM Electronically Signed By: TERESA ALLEN MD 08/14/25 1733 PATIENT NAME: MELISSA ROWE Electrocardiogram DATE OF : 41 PHYSICIAN: TERESA ALLEN MD REPORT #: [id number] REPORT IS CONFIDENTIAL AND NOT TO BE RELEASED WITHOUT AUTHORIZATION
== END 2025-08-14 09:40 | disposition home or self-care (01) ==
LOC: ED 08:02
PROVIDERS: Emergency Medicine
DX: R00.2 Palpitations (principal); I10 Essential (primary) hypertension; E78.5 Hyperlipidemia, unspecified
CPT/HCPCS: 36415; 80053; 83690; 84484; 85025; 93005; 93010; 99285